=== PATIENT | female | born 1995 | race Caucasian/White ===

== ENCOUNTER 2021-01-24 18:30 | Emergency (ER) | payer OTHER ==
[~2021-01-24] VITALS: Ht 152.4 cm; Wt 95.7 kg
[~2021-01-24 18:30] MED LIST: ACET-2619
[2021-01-24 18:42] VITALS: BP 133/90
--- NOTE | 2021-01-24 18:59 | NUR ---
25/F presents to ED with c/o right upper quadrant pain radiating to belly button. Patient states last night she began having constant sharp 10/10 right upper quadrant pain. Patient states waking up today the pain continued and began to radiate to her belly button accompanied with nausea. Patient states "I think it might be my appendix," states right upper quadrant is tender to touch, denies taking anything at home for pain or nausea. Patient denies chest pain and shortness of breath, denies vomiting, diarrhea, denies dysuria or hematuria. Patient placed in gown.
--- NOTE | 2021-01-24 19:11 | NUR ---
Received report from TIFFANY Argueta
--- NOTE | 2021-01-24 19:25 | NUR ---
Patient a/ox4; breathing unlabored and symmetrical; Abdominal region-soft and nondistended; discomfort elicited upon palpation. No nausea and vomiting at this time. 8/10 RUQ pain. PMH: none nkda Meds: none
[2021-01-24] MEDS ORDERED: IBUPROFEN 600 MG TAB PO ONE (19:30)
--- NOTE | 2021-01-24 19:42 | NUR ---
US at bedside
--- NOTE | 2021-01-24 20:00 | NUR ---
Lab at bedside.
[2021-01-24 20:01] LABS: APPEARANCE,URINE CLEAR (CLEAR); BILIRUBIN,URINE NEGATIVE (NEGATIVE); BLOOD, URINE 2+ (NEGATIVE); COLOR,URINE YELLOW (YELLOW); LEUKOCYTE ESTERASE ,URINE 1+ (NEGATIVE); NITRITE, URINE NEGATIVE (NEGATIVE); UGLUCOSE 3+ (NEGATIVE)
[2021-01-24 20:17] LABS: BASOPHILS # (AUTO) 0.1 K/uL (0.00-0.22); BASOPHILS % (AUTO) 0.8 % (0.0-2.0); EOSINOPHILS # (AUTO) 0.1 K/uL (0-0.4); EOSINOPHILS % (AUTO) 1.5 % (0.0-4.0); HEMATOCRIT 48.8 % (36-48); HEMOGLOBIN 16.9 g/dL (12.0-16.0); LYMPHOCYTES # (AUTO) 2.3 K/uL (2.5-16.5); LYMPHOCYTES % (AUTO) 30.3 % (20.5-51.1); MEAN CORPUSCULAR HEMOGLOBIN 29 pg (27-31); MEAN CORPUSCULAR HGB CONC 35 g/dL (33-37); MEAN CORPUSCULAR VOLUME 84.7 fL (80-94); MONOCYTES # (AUTO) 0.4 K/uL (0.8-1.0); MONOCYTES % (AUTO) 5.4 % (1.7-9.3); NEUTROPHILS # (AUTO) 4.8 K/uL (1.8-7.7); PLATELET COUNT (AUTO) 335 K/uL (140-450); RED BLOOD CELL COUNT(AUTO) 5.76 MIL/uL (4.20-5.40); WHITE BLOOD COUNT (AUTO) 7.7 K/uL (4.8-10.8)
[2021-01-24 20:34] LABS: ALBUMIN 3.6 g/dL (3.4-5.0); ANION GAP 11.8 (8-16); CARBON DIOXIDE 26.7 mmol/L (21-32); CREATININE 0.7 mg/dL (0.6-1.3); POTASSIUM 3.5 mmol/L (3.5-5.1); TOTAL BILIRUBIN 0.6 mg/dL (0.0-1.0)
[2021-01-24] MEDS ORDERED: METF500T PO (21:40)
[2021-01-24] MEDS ORDERED: NITR100C7 PO (21:40)
[2021-01-24] MEDS ORDERED: LANC-947 TP (21:40)
[2021-01-24] MEDS ORDERED: [UNRECOGNIZED DRUG - CODE] MC (21:40)
--- NOTE | 2021-01-24 22:00 | NUR ---
Patient discharged with v/s stable. Written and verbal after care instructions given and explained. Patient alert, oriented and verbalized understanding of instructions. Ambulatory with by parent. All questions addressed prior to discharge. ID band removed. Patient advised to follow up with PMD. Rx of GLUCOPHAGE, MACROBID, GLUCOMETER, LANCET given. Patient educated on indication of medication including possible reaction and side effects. Opportunity to ask questions provided and answered.
[2021-01-24 22:01] VITALS: BP 122/79
== END 2021-01-24 22:00 | disposition home or self-care (01) ==
LOC: MED 18:30
DX: N39.0 Urinary tract infection, site not specified (principal); E11.65 Type 2 diabetes mellitus with hyperglycemia
CPT/HCPCS: 36415; 76705; 80053; 81001; 81025; 83690; 85025; 87086; 99285